=== PATIENT | female | born 1995 | race Caucasian/White ===

== ENCOUNTER 2018-10-03 07:00 | Inpatient (IN) | payer OTHER ==
[~2018-10-03] VITALS: Ht 170.2 cm; Wt 105.9 kg
[2018-10-03] MEDS: LACTATED RINGER'S 1,000 ML IV SCH ×3 (08:15→23:35)
[2018-10-03 08:49] VITALS: Ht 170.2 cm; Wt 105.9 kg
[2018-10-03] MEDS ORDERED: BUTORPHANOL 2 MG INJ IV PRN (09:00)
[2018-10-03] MEDS ORDERED: OXYTOCIN 30 UNITS/LR 500 ML IV PRN (09:00)
[2018-10-03] MEDS ORDERED: LIDOCAINE 1% (MPF) 30 ML INJ INJ PRN (09:00)
[2018-10-03] MEDS ORDERED: OXYTOCIN 30 UNITS/LR 500 ML IV SCH ×2 (09:00)
[2018-10-03] MEDS ORDERED: MISOPROSTOL 200 MCG TAB PR PRN (09:00)
[2018-10-03] MEDS ORDERED: CARBOPROST 250 MCG INJ IM PRN (09:00)
[2018-10-03] MEDS ORDERED: METHYLERGONOVINE 0.2 MG INJ IM PRN (09:00)
[2018-10-03] MEDS: MISOPROSTOL 50 MCG CAPSULE PO SCH ×3 (09:57→18:51)
--- NOTE | 2018-10-03 16:04 | HP ---
Date/Time of Note Date/Time of Note DATE: 10/03/18 TIME: 16:03 OB - History Hx of Present Free Text/Dictation History of present illness: 22-year-old G2, P1 at 40 and 1 day presents for induction of labor for postdates. She denies any leakage of fluid/vaginal bleeding/contractions. Obstetric history: Vaginal delivery at 40 weeks and 2016induced labor Gynecology: Last menstrual period approximately 12/26/2017 DENA: 10/02/2018 Past medical historychildhood asthma Surgical historynone Family history diabetesmother Social historynegative for tobacco/all/recreational drugs Allergiesno known drug allergies Medicationsprenatal vitamins Physical exam General: No apparent distress Cardiovascular: Regular rate and rhythm Pulmonary: Clear to auscultation bilaterally Abdomen: Gravid Uterus: Luke's 3200 g vertex Extremities: Nontender to palpation Psychological: Alert oriented EFM: Category I 120/mod mamy/+accels/no decels DENA: 10/02/2018 by LMP consistent with a second trimester ultrasound labs: O + H/H 10.5/30.7 Rubella immune Otitis B surface antigen nonreactive HIV negative Gonorrhea chlamydia negative MSAFP negative GBS negative Assessment/plan: 1. Induction of laboradmit to labor and delivery. Routine labs and vitals. CEFM, [place]. Induction of labor via Misoprostol until Bishops is 8 and then Pitocin. Patient has been counseled on induction of labor. All inquiries addressed. Epidural upon patient request. 2. Anemia of pregnancyferrous sulfate : 2 Para: 1 Past Family/Social History * Past Medical, Surgical, Family and Obstetric Histories reviewed from chart. OB Admission Exam Last 72 hours Lab Results CBC & BMP 10/03/18 08:00 JAGDISH FLEMING MD Oct 03, 2018 16:04
[2018-10-04] MEDS: LACTATED RINGER'S 1,000 ML IV SCH ×3 (03:58→19:46)
[2018-10-04] MEDS: MISOPROSTOL 50 MCG CAPSULE PO SCH (11:59)
--- NOTE | 2018-10-04 15:43 | PN ---
Date/Time of Note Date/Time of Note DATE: 10/04/18 TIME: 15:42 OB Subjective Subjective Subjective pt w c/o feeling pain efm cat i toco q 2-3 min sve /-1 start pitocin MILESTONE,JAGDISH PHILIP Oct 04, 2018 15:43
[2018-10-04] MEDS ORDERED: OXYTOCIN 30 UNITS/LR 500 ML IV SCH (16:00)
[2018-10-04] MEDS ORDERED: LACTATED RINGER'S 1,000 ML IV PRN (17:40)
[2018-10-04] MEDS ORDERED: FENTAnyl 2MCG/ML-ROPIV 0.2% 100 ML ONE (18:31)
[2018-10-04] MEDS ORDERED: FER325 PO (20:11)
[2018-10-04] MEDS ORDERED: PREN-99 PO (20:11)
[2018-10-04] MEDS ORDERED: ONDANSETRON 4 MG INJ IV PRN (20:30)
[2018-10-04] MEDS ORDERED: NALOXONE (0.4 MG/ML) INJ IV PRN (20:30)
[2018-10-04] MEDS ORDERED: FENTAnyl 2MCG/ML-ROPIV 0.2% 100 ML BAG EPI SCH (20:30)
[2018-10-04] MEDS ORDERED: NALBUPHINE HCL (10 MG/1 ML) INJ IV PRN (20:30)
--- NOTE | 2018-10-04 20:32 | PREAC ---
Date/Time of Note Date/Time of Note DATE: 10/04/18 TIME: 20:31 Anesthesia Eval and Record Evaluation Time Pre-Procedure Interview DATE: 10/04/18 TIME: 18:06 Age 23 Sex female NPO: 8 hrs Preoperative diagnosis iup @ 40 wks., , labor Planned procedure liban Past Medical History Past Medical History: Includes : : (2), Para: (1), Gestational age: (40 wks.) Surgery & Anesthesia Issues No known issue Meds Anticoagulation: No Beta Darell within 24 hr: No Reason Beta Darell not given: Pt. not on B-Darell Reported Medications Ferrous Sulfate* (Ferrous Sulfate*) 325 Mg Tabec, 325 MG PO DAILY, TAB 10/04/18 Vit #76/Iron,Carb/FA (Pnv 29-1 Tablet) 1 Each Tablet, 1 EACH PO, TAB 10/04/18 Current Medications Lactated Ringer's 1,000 ml @ 125 mls/hr Q8H IV Last administered on 10/04/18at 19:46; Admin Dose 125 MLS/HR; Start 10/03/18 at 08:31 Butorphanol Tartrate (Stadol) 2 mg Q2H PRN IV .PAIN SCALE 6-10; Start 10/03/18 at 09:00 Lidocaine (Xylocaine 1% (Mpf)) 30 ml ONCE PRN INJ .EPISIOTOMY; Start 10/03/18 at 09:00 Oxytocin/Lactated Ringer's 500 ml @ 500 mls/hr ONCE POST IV ; Start 10/03/18 at 09:00 Oxytocin/Lactated Ringer's 500 ml @ 125 mls/hr POST IV ; Start 10/03/18 at 09:00 Oxytocin/Lactated Ringer's 500 ml @ 0 mls/hr ONCE PRN IV .VAGINAL BLEEDING; Start 10/03/18 at 09:00 Methylergonovine Maleate (Methergine) 0.2 mg ONCE PRN IM .VAGINAL BLEEDING; S tart 10/03/18 at 09:00 Carboprost Tromethamine (Hemabate) 250 mcg ONCE PRN IM .VAGINAL BLEEDING; Start 10/03/18 at 09:00 Misoprostol (Cytotec) 1,000 mcg ONCE PRN WA .VAGINAL BLEEDING; Start 10/03/18 at 09:00 Oxytocin/Lactated Ringer's 500 ml @ 0 mls/hr FOR INDUCTION IV Last administered on 10/04/18at 16:17; Admin Dose 1 MLS/HR; Start 10/04/18 at 16:00 Lactated Ringer's 1,000 ml @ 2,000 mls/hr Q30M PRN IV .ANESTHESIA Last administered on 10/04/18at 17:47; Admin Dose 2,000 MLS/HR; Start 10/04/18 at 17:40 Meds reviewed: Yes Allergies Coded Allergies: No Known Allergy (Unverified , 10/03/18) Allergies Reviewed: Yes Labs/Studies Labs Reviewed: Reviewed by anesthesiologist Result Diagram: 10/03/18 0800 test: Positive Studies: ECG (n/a), CXR (n/a) Pre-procedure Exam Airway: Adequate mouth opening, Adequate thyromental dist Mallampati: Mallampati II Teeth: Normal Lung: Normal Heart: Normal ASA Physical Status ASA physical status: 2 Emergency: E Planned Anesthetic Neuraxial: Epidural Planned Pain Management Epidural, Local by surgeon Pre-operative Attestations Prior to commencing anesthesia and surgery, the patient was re-evaluated, there was verification of: *The patient's identity *The results of appropriate recent lab work and preoperative vital signs *The above evaluation not changing prior to induction *Anesthetic plan, risk benefits, alternative and complications discussed with patient/family; questions answered; patient/family understands, accepts and wishes to proceed. Referral Rn used MARAH GUTIERREZ MD Oct 04, 2018 20:32
[2018-10-04] MEDS ORDERED: IBUPROFEN 600 MG TAB PO PRN (21:00)
--- NOTE | 2018-10-04 22:48 | LDN ---
Date/Time of Note Date/Time of Note DATE: 10/04/18 TIME: 22:46 Delivery Summary Weeks of Gestation 40 weeks Placenta Delivered: Spontaneously Meconium: none Episiotomy: No Laceration repair: Vaginal laceration repaired with 2-0 Vicryl. Anesthesia type: Epidural Estimated blood loss: 200 Sponge & Needle done & correct: Yes All needle counts correct: Yes Any foreign bodies felt in the: No Infant Delivery Information Sex Infant Sex: female Apgars 1 Minute: 9 5 Minute: 9 Suctioning Nose & mouth suctioned at owen: No Delee suction performed: No Umbilical Cord Umbilical cord with: 3 Vessels Cord presentations: nuchal cord Nuchal cord present X: 1 Cord Blood was obtained: Yes Mother & Baby Disposition Disposition Mom & Baby to Maternity; Good: Yes TUCKER COLEMAN MD Oct 04, 2018 22:48
[2018-10-05] MEDS ORDERED: MINERAL OIL LIGHT 10 ML VIAL TOP PRN
[2018-10-05 00:50] VITALS: BP 120/68; PULSE 70; RESP 18
[2018-10-05] MEDS: LACTATED RINGER'S 1,000 ML IV* SCH ×2 (01:07→09:07)
[2018-10-05] MEDS ORDERED: WITCH HAZEL/GLYCERIN PAD PR PRN (01:30)
[2018-10-05] MEDS ORDERED: CARBOPROST 250 MCG INJ IM PRN (01:30)
[2018-10-05] MEDS ORDERED: DIBUCAINE 1% 30 GM OINT TOP PRN (01:30)
[2018-10-05] MEDS ORDERED: HYDROCODONE/APAP (5/325) TAB PO PRN (01:30)
[2018-10-05] MEDS ORDERED: ACETAMINOPHEN 325 MG TAB PO PRN (01:30)
[2018-10-05] MEDS ORDERED: OXYTOCIN 30 UNITS/LR 500 ML IV PRN (01:30)
[2018-10-05] MEDS ORDERED: MISOPROSTOL 200 MCG TAB PR PRN (01:30)
[2018-10-05] MEDS ORDERED: BENZOCAINE 20% 56 ML SPRAY TOP PRN (01:30)
[2018-10-05] MEDS ORDERED: METHYLERGONOVINE 0.2 MG INJ IM PRN (01:30)
[2018-10-05 04:00] VITALS: BP 118/62; PULSE 86; RESP 20
[2018-10-05] MEDS: IBUPROFEN 600 MG TAB PO SCH ×4 (05:34→23:47)
[2018-10-05 08:00] VITALS: BP 105/60; PULSE 79; RESP 17
[2018-10-05] MEDS: SENNA/DOCUSATE NA (8.6MG/50MG) TAB PO SCH ×2 (09:19→20:59)
--- NOTE | 2018-10-05 10:29 | PN ---
Date/Time of Note Date/Time of Note DATE: 10/05/18 TIME: 10:28 OB Subjective Subjective Subjective Subjective: Tolerating regular diet. voiding. Ambulating. Vaginal bleeding within normal limits. Breast feeding. Complaints: None Mode of delivery: vaginal Objective: Vital signs: 118/62 H/H: 10/30 General: No apparent distress Breast: Normal Fundus: 2 fingerbreadths below the umbilicus Extremities: nontender to palpation Assessment/plan: 1. day #1 vaginalroutine care 2. Anemia acute blood loss-ferrous sulfate Disposition: likely discharge tomorrow MILESTONE,JAGDISH PHILIP Oct 05, 2018 10:29
[2018-10-05 12:00] VITALS: BP 113/64; PULSE 77; RESP 17
[2018-10-05] MEDS: FERROUS SULFATE (EC) 325 MG TAB PO SCH (12:00)
[2018-10-05 16:00] VITALS: BP 110/59; PULSE 76; RESP 16
[2018-10-05 19:45] VITALS: BP 120/77; PULSE 65; RESP 18
[2018-10-06 04:21] VITALS: BP 124/64; PULSE 64; RESP 18
[2018-10-06] MEDS: IBUPROFEN 600 MG TAB PO SCH ×2 (05:46→12:21)
[2018-10-06] MEDS ORDERED: DIPHTH/TET/ACEL PERTUSS (ADULT) 0.5 ML VIAL IM* ONE (09:00)
[2018-10-06] MEDS: SENNA/DOCUSATE NA (8.6MG/50MG) TAB PO SCH (10:01)
[2018-10-06] MEDS: FERROUS SULFATE (EC) 325 MG TAB PO SCH (10:01)
--- NOTE | 2018-10-06 12:58 | QN ---
Documentation Comment PPD#2 is stable afebrile tolerates Diet No VB +BM +voids VS stable Gen NAD Abd soft NT ND Genitalia No blood at perineum ->Discharge HUBER HILLMAN M.D. Oct 06, 2018 12:58
--- NOTE | 2018-10-06 12:59 | DS ---
Date/Time of Note Date/Time of Note DATE: 10/06/18 TIME: 12:58 Discharge Summary Admission/Discharge Info Admit Date/Time Oct 03, 2018 at 07:00 Discharge Date/Time 10/06/2018 Discharge Diagnosis Patient Condition: Good Hospital Course uneventful Home Meds Reported Medications Ferrous Sulfate* (Ferrous Sulfate*) 325 Mg Tabec, 325 MG PO DAILY, TAB 10/04/18 Vit #76/Iron,Carb/FA (Pnv 29-1 Tablet) 1 Each Tablet, 1 EACH PO, TAB 10/04/18 [facility] Oct 06, 2018 12:59
--- NOTE | 2018-10-07 15:24 | DELSUM ---
Delivery Summary A-C Datetime Report Generated by CPN: 10/07/2018 15:24 DELIVERY PERSONNEL Podiatric Aide: Crow Rodriguezuel MATERNAL INFORMATION Delivery Anesthesia: Epidural Medications in Delivery: OXYTOCIN, 30 UNITS IN 500ML LR Delivery QBL (ml): 200 Placenta Cultured: No Maternal Complications: Prolong Labor >20Hrs RN Comments: RAY Amador RN LABOR SUMMARY EDC: 10/02/2018 00:00 No. Babies in Womb: 1 Attempted: No Labor Anesthesia: None LABOR INFORMATION Reason for Induction: Postterm Onset of Labor: 10/04/2018 15:38 Complete Dilatation: 10/04/2018 22:21 Cervical Ripening Agents: Cytotec @ Oxytocin: Induction Group B Beta Strep: Negative Antibiotics # of Doses: 0 Steroids Given: None Reason Steroids Not Administered: Not Applicable MEMBRANES Membranes Rupture Method: Spontaneous Rupture of Membranes: 10/04/2018 17:06 Length of Rupture (hr): 5.43 Amniotic Fluid Color: Clear Amniotic Fluid Amount: Small Amniotic Fluid Odor: Normal STAGES OF LABOR Stage 1 hr: 6 Stage 1 min: 43 Stage 2 hr: 0 Stage 2 min: 11 Stage 3 hr: 0 Stage 3 min: 3 Total Time in Labor hr: 6 Total Time in Labor min: 57 VAGINAL DELIVERY Episiotomy: None Laceration Extension: First Degree Laceration Type: Vaginal Laceration Repair: Yes Initial Vag Sponge Count: 10 Final Vag Sponge Count: 10 Initial Vag Sharps Count: 2 Final Vag Sharps Count: 2 Sponge Count Correct: Yes Sharps Count Correct: Yes BABY A INFORMATION Delivery Date/Time: 10/04/2018 22:32 Method of Delivery: Vaginal Born in Route : No : N/A Forceps: N/A Vacuum Extraction: N/A Shoulder Dystocia : N/A SHOULDER DYSTOCIA BABY A Infant Delivery Date/Time: 10/04/2018 22:32 PRESENTATION/POSITION BABY A Presentation: Cephalic Cephalic Presentation: Vertex Vertex Position: Left Occipital Anterior Breech Presentation: N/A PLACENTA INFORMATION BABY A Placenta Delivery Time : 10/04/2018 22:35 Placenta Method of Delivery: Expressed Placenta Status: Delivered SCORES BABY A Heart Rate 1 min: >100 bpm Resp Effort 1 min: Good Cry Reflex Irritability 1 min: Cough/Sneeze/Pulls Away Muscle Tone 1 min: Active Motion Color 1 min: Body [place], Extremit Blue Resuscitation Effort 1 min: Tactile Stimulation SCORE 1 MIN: 9 Heart Rate 5 min: >100 bpm Resp Effort 5 min: Good Cry Reflex Irritability 5 min: Cough/Sneeze/Pulls Away Muscle Tone 5 min: Active Motion Color 5 min: Body [place], Extremit Blue Resuscitation Effort 5 min: Tactile Stimulation SCORE 5 MIN: 9 INFORMATION BABY A Gestational Age at Delivery: 40.2 Gestational Status: Full Term- 39- 40.6 Weeks Infant Outcome : Liveborn, with signs of life Condition : Stable Infant Sex: Female IDENTIFICATION/MEDS BABY A ID Band Number: [id number] ID Band Location: Right Leg; Left Arm Sensor Applied: Yes Sensor Number: [id number] Sensor Location : Cord Clamp Vitamin K Given : Not Given Erythromycin Given: Not Given WEIGHT/LENGTH BABY A Birthweight (gm): 3670 Weight (lb): 8 Infant Weight (oz): 1 Infant Length (in): 19.50 Length (cm): 49.53 CORD INFORMATION BABY A No. Cord Vessels: 3 Nuchal Cord : Around Neck x1, Loose Cord Blood Taken: Yes Banking/Donate Info: NO Suction: Mouth; Nose ASSESSMENT BABY A Infant Complications: None Physical Findings at Delivery: Molding of the Head Respirations: Appears Normal Associate Scientist/ALS Called : No Infant Care By: RT AND RESOURSE MJ Amador Transferred To: Remains with Mother
== END 2018-10-06 15:05 | disposition home or self-care (01) | DRG 832 ==
LOC: L-D 07:00 → PP1 10-05 00:57
PROVIDERS: ADMIT Obstetrics & Gynecology; ATTEND Obstetrics & Gynecology
PROC: 0UQGXZZ Repair Vagina, External Approach (ICD-10-PCS; principal; 2018-10-04)
PROC: 3E033VJ Introduction of Other Hormone into Peripheral Vein, Percutaneous Approach (ICD-10-PCS; 2018-10-04)
DX: O48.0 Post-term pregnancy (principal); O69.81X0 Labor and delivery complicated by cord around neck, without compression, not applicable or unspecified; O71.4 Obstetric high vaginal laceration alone; D62 Acute posthemorrhagic anemia; O99.02 Anemia complicating childbirth; Z3A.40 40 weeks gestation of pregnancy; Z37.0 Single live birth
CPT/HCPCS: 62322; 76816; 85025; 85610; 85730; 86592; 86850; 86900; 86901; 87340; 99464; J2590; J3010; J7120